=== PATIENT | female | born 1955 | race Caucasian/White ===

== ENCOUNTER 2024-01-08 15:00 | Outpatient (AMB) | payer MEDICARE, MEDICAID, SELFPAY ==
--- NOTE | 2024-01-08 15:04 | A.OFFVIS_ITS ---
Vital Signs 01/08/24 15:05 Height 5 ft 1 in Weight 224 lb 10.417 oz BMI 42.4 BP 138/80 Blood Pressure Location Lt brachial Position Sitting Pulse 84 Pulse Source Pulse Oximeter Pulse Oximetry (%) 98 Oxygen Delivery Method Room Air Intake Visit Reasons: +ANJALI Intake Note: New patient externally referral by PCP for +ANJALI 15-20 years She's tried different pain meds and ointments to try and help her. 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 Name: Camilla Bryant Accompanied by: Daughter Allergies No Known Allergies Allergy (Verified 01/08/24 15:13) Medication List - Last Reconciled 01/08/24 by Chey Shell MD acetaminophen (Tylenol Extra Strength) 500 mg PO Q6H PRN amlodipine 5 mg PO DAILY amoxicillin 500 mg PO QID aspirin (Adult Aspirin Regimen) 81 mg PO DAILY atorvastatin 40 mg PO DAILY cyclobenzaprine 5 mg PO BEDTIME diclofenac sodium 75 mg PO BID fluticasone propionate 50 mcg/actuation (Allergy Relief (fluticasone)) 1 spray intranasal DAILY vpzjoslh-hkncf-[id number]-C-jeremy-bor [id number] mg tabs PO lidocaine 4% (Salonpas (lidocaine)) 1 patch topical DAILY PRN lorazepam 1 mg PO BEDTIME PRN magnesium 500 mg PO DAILY metoprolol succinate ER 50 mg PO DAILY nortriptyline 25 mg PO BEDTIME omeprazole 20 mg PO DAILY sucralfate 1 g PO QIDACHS vitamin B complex 1 cap PO DAILY HPI Comments Details: This is a 68-year-old female who presents for evaluation of positive ANJALI. This was ordered in the context of polyarthritis and nail changes affecting her thumbs. Patient states that she has known osteoarthritis affecting multiple joints including both her knees, both her knees are replaced, she has pain hips anteriorly especially with activity. She takes Voltaren 75 mg about 3 times a week. She is unaware of any family history of an autoimmune rheumatic disease. She denies any swollen joints denies any skin rashes denies fevers or unexplained weight loss. No history of Raynaud's Denies any history of DVT/PE. PFSH Medical History Hernia FH: total knee replacement Hypertension Arthritis Surgical History History of surgery on lower extremity History of cholecystectomy Family History Mother Hypertension Son Heart failure Sister Breast CA Social History Alcohol intake: never Patient Tobacco Use Status: Never used Tobacco Female Reproductive History Menstrual Total pregnancies: 5 Ab induced: 0 Ab spontaneous: 0 Review of Systems Const Denies fever(s), Reports weakness and Denies weight loss Eyes Reports dry eyes Card Reports dyspnea on exertion Resp Reports dyspnea on exertion Musc Reports arthralgias, Denies joint swelling and Reports stiffness Skin/Breast Denies rash Neuro Reports weakness Physical Exam Vital Signs: Last Vital Signs Pulse 84 01/08/24 15:05 BP 138/80 01/08/24 15:05 Pulse Ox 98 01/08/24 15:05 Oxygen Delivery Method Room Air 01/08/24 15:05 BMI result Body Mass Index 42.4 Const General: cooperative, healthy appearing and comfortable Nutritional Appearance: obese morbidly obese Orientation/consciousness: patient oriented x3 Limitations: no limitations HEENT Head: Yes normocephalic and Yes atraumatic Mouth: moist mucous membranes Resp Effort & Inspection: normal respiratory effort and able to speak in complete sentences Auscultation: clear to auscultation bilaterally Cardio Rate: regular rate Rhythm: regular rhythm Skin General skin exam: no rashes or lesions noted Neuro General: patient oriented x3 Extrem Other: No active synovitis Osteoarthritic changes of both hands Normal nailfold capillaroscopy Bilateral anterior hip pain with foot inversion Negative straight leg raise test bilaterally Assessment & Plan Assessment & Plan (1) ANJALI positive: Code(s): R76.8 - Other specified abnormal immunological findings in serum Category: Medical Plan: This is a 68-year-old female presents for evaluation of positive ANJALI 1-640 homogeneous pattern in the setting of nail changes of her thumbs. Upon clinical evaluation I do not see any evidence of an autoimmune rheumatic disease. Mariam ent has normal CBC with normal ESR Discussed symptoms and signs that are suggestive of an autoimmune rheumatic disease. Patient can return as needed for re-evaluation Follow-up with marine habitat resource specialist (2) Bilateral primary osteoarthritis of hip: Code(s): M16.0 - Bilateral primary osteoarthritis of hip Category: Medical Plan: Mild symptoms, takes Voltaren 75 mg p.o. 3 times a week. Follow-up with PCP Plan I spent 30 minutes reviewing patient's chart, evaluating patient, counseling patient and documenting in the chart Coding Level of Care Code New Pt Level 3 (72837) Diagnoses ANJALI positive R76.8 Bilateral primary osteoarthritis of hip M16.0
[2024-01-08 15:05] VITALS: BP 138/80; PULSE 84; O2SAT 98; BMI 42.4
== END 2024-01-08 15:54 | disposition home or self-care (01) ==
PROVIDERS: PCP Registered Nurse; Visit Provider Student in an Organized Health Care Education/Training Program
DX: R76.8 Other specified abnormal immunological findings in serum (principal); M16.0 Bilateral primary osteoarthritis of hip
CPT/HCPCS: 99203

== ENCOUNTER → 2024-01-08 15:00 | Outpatient (BNVA) | payer MEDICARE, MEDICAID, SELFPAY | PROVIDERS: PCP Registered Nurse; Visit Provider Student in an Organized Health Care Education/Training Program | DX: M16.0 Bilateral primary osteoarthritis of hip (principal); R76.8 Other specified abnormal immunological findings in serum | CPT/HCPCS: 99202 ==

== ENCOUNTER 2025-03-02 11:15 | Outpatient (AMB) | payer MEDICARE, MEDICAID, SELFPAY ==
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
--- OUTSIDE RECORDS SUMMARY | 2025-03-02 12:41 | XMS_ITS ---
Author Name [facility] Organization Unknown Care Team Organization Name Specialty Phone Email Start Date End [facility] 01/20/2025
--- OUTSIDE RECORDS SUMMARY | 2025-03-02 12:41 | XMS_ITS | Encounter Summary ---
Author Organization [facility] Address [address] [place] [address] Care Team Providers Care Animal Trainer Supervisor Name Role Phone Nate Fulton MD Primary Care Provider [phone] Encounter Details Date Type Department Care Team (Late st Contact Info) Description 03/02/2025 Telephone Adult Medicine [facility] [address] [place] [address] Ashtyn Banuelos LPN Social History Tobacco Use Types Packs/Day Years Used Date Smoking Tobacco: Never Smokeless Tobacco: Never Alcohol Use Standard Drinks/Week Comments No 0 (1 standard drink = 0.6 oz pur e alcohol) Housing Instability Answer Date Recorde d Are you worried that in the next 2 months you may not have stable housing? No 01/04/2025 Food Access & Nutrition Answer Date Rec orded Do you have access to a vari ety of food including fruits and vegetables? Yes 01/04/2025 Access to Healthcare Answer Date Record ed Within the last 3 months, ho w many times did you visit the emergency department for your medical care? 0 01/04/2025 Health Literacy Answer Date Recorded How often do you need to hav e someone help you when you read instructions, pamphlets, or other written material from your doctor or pharmacy? Always 01/04/2025 Caregiver: How often do you need to have someone help you when you read instructions, pamphlets, or other written material from your doctor or pharmacy? Not on file 01/04/2025 Financial Risk Answer Date Recorded How hard is it for you to pa y for the very basics like food, housing, medical care, and air conditioning / heating? Not very hard 01/04/2025 Transportation Answer Date Recorded Has the lack of transportati on kept you from meetings, work, or from getting things needed for daily living? No Has the lack of transportati on kept you from medical appointments or from getting medications? No 01/04/2025 Social Isolation Answer Date Recorded How often do you feel lonely or isolated from th ose around you? Never 01/04/2025 Food Risk Answer Date Recorded Within the past 12 months we worried whether our food would run out before we got money to buy more. Never true 01/04/2025 Within the past 12 months th e food we bought just didn't last and we didn't have money to get more. Never true 01/04/2025 Dependent Care Answer Date Recorded Do you need help finding or paying for care for your loved ones. For example, child care assistant or elderly care for an older adult? No 01/04/2025 Education Answer Date Recorded Do you think completing more education or training, like finishing a GED, going to college, or learning a trade, would be helpful for you? N/A 01/04/2025 Employment and Income Answer Date Recor ded During the last four weeks, have you been actively looking for work? No 01/04/2025 Living Situation Answer Date Recorded What is your living situation? Unrecognized valu e 01/04/2025 Comments No Sex and Gender Information Value Date Recorded Sex Assigned at Not on file Legal Sex Female 12:52 PM EST Gender Identity Not on file Sexual Orientation Not on file documented as of this encounter Progress Notes * Ashtyn Banuelos LPN - 03/02/2025 12:15 PM EDT Pt was notified to complete a random urine drug screen in our [facility] by 03/03. The patient was also instructed that failure to complete this urine drug screen, as requested,would jeopardize their Controlled Substance Contract with [facility]. The patient expressed understanding of the instructions and confirmed that they will arrive by that date. documented in this encounter Plan of Treatment Upcoming Encounters Date Type Department Care Team (Late st Contact Info) Description 07/12/2025 10:30 AM EST Office Visit Adult Medicine - [place] [address] [place] [address] Peyton Gary NP [address] [place] [address] documented as of this encounter Visit Diagnoses Not on filedocumented in this encounter Additional Health Concerns Assessment Noted Time PHQ-9 Depression Total Score: 0 01/05/20 25 10:45 AM EDT documented as of this encounter Care Teams Animal Trainer Supervisor Relationship Specialty Start Date End Date Nate Fulton MD [address], [place] PCP - General Internal Medicine 09/28/20 documented as of this encounter
--- OUTSIDE RECORDS SUMMARY | 2025-03-02 12:41 | XMS_ITS | Encounter Summary ---
Author Organization [facility] Address [address] [place] [address] Care Team Providers Care News Reel Cameraman Name Role Phone Nate Fulton MD Primary Care Provider [phone] Reason for Visit * Reason Onset Date Comments Drug / Alcohol Assessment 03/01/2025 Encounter Details Date Type Department Care Team (Late st Contact Info) Description 03/01/2025 Telephone Adult Medicine [address] [address] Ashtyn Banuelos LPN Social History Tobacco [...] care for your loved ones. For example, childrens club attendant or elderly care for an older adult? [...] Progress Notes * Ashtyn Banuelos LPN - 03/01/2025 4:36 PM EDT UDS DUE AND PENDED Please sign and route back to me when signed documented in this encounter Plan of Treatment Upcoming Encounters Date Type Department Care Team (Late st Contact Info) Description 07/12/2025 10:30 AM EST Office Visit Adult Medicine [address] [address] Peyton Gary NP [address] [place] [address] Scheduled Orders Name Type Priority Associated Diagnoses Orde r Schedule Drug abuse screen expanded with reflex confirmation, urine Lab Routine Encounter for long-term (current) use of high-risk medication 1 Occurrences starting 03/02/2025 until 03/01/2026 documented as of this encounter Visit Diagnoses Diagnosis Encounter for long-term (current) use of high-risk medication- Primary Encounter for long-term (current) use of other medications documented in this encounter Additional Health Concerns Assessment Noted Time PHQ-9 Depression Total Score: 0 01/05/20 25 10:45 AM EDT documented as of this encounter Care Teams News Reel Cameraman Relationship Specialty Start Date End Date Nate Fulton MD [address] [place] [address] PCP - General Internal Medicine 09/28/20 documented as of this encounter
--- OUTSIDE RECORDS SUMMARY | 2025-03-02 12:41 | XMS_ITS | Clinical Summary ---
Author Organization [facility] [address] [facility] Address [address] [place] [address] Phone Care Team Providers Care Flight Readiness Technician Name Role Phone Nate Fulton MD Primary Care Provider [phone] Allergies No known active allergies Medications medical supply, miscellaneous (MISCELLANEOUS MEDICAL SUPPLY MISC) Inhale into the lungs at bedtime. BHIR-pressur e 6-16 Active camphor-methyl salicyl-menthoL adhesive patch,medicated Apply topically as needed. Active sucralfate (CARAFATE) 1 gram tablet TAKE 1 TABLET BY MOUTH TWICE A DAY 10/30/19 24 Active cholecalciferol (VITAMIN D-3) 25 mcg (1,000 unit) capsule Take 1,000 mg by mouth daily. Active gabapentin (NEURONTIN) 100 mg capsule Take 1 capsule (100 mg total) by mouth 3 (three) times a day. 270 each 1 11/18/19 25 Active omeprazole (PriLOSEC) [address] capsule Take 1 capsule (20 mg total) by mouth 1 (one) time each day. Do not crush or chew. 90 capsule 11/18/19 25 Active B complex tablet Take 1 tablet by mouth 1 (one) time each day. 90 tablet 1 11/18/19 25 Active amLODIPine (NORVASC) 5 mg tablet Take 1 tablet (5 mg total) by mouth 1 (one) time each day. 90 tablet 1 11/18/19 25 Active metoprolol succinate (TOPROL-XL) 50 mg 24 hr tablet Take 1 tablet (50 mg total) by mouth 1 (one) time each day. 90 tablet 1 11/18/19 25 Active nortriptyline (PAMELOR) 25 mg capsule Take 1 capsule (25 mg total) by mouth at bedtime. 90 capsule 1 11/18/19 25 Active aspirin 81 mg EC tablet Take 1 tablet (81 mg total) by mouth 1 (one) time each day. 90 tablet 1 11/18/19 25 Active tiZANidine (Zanaflex) 4 mg capsule Take 1 capsule (4 mg total) by mouth 3 (three) times a day if needed for muscle spasms. 30 capsule 12/02/19 25 Active fluticasone propionate (FLONASE) 50 mcg/actuation nasal spray SPRAY 2 SPRAYS INTO EACH NOSTRIL EVERY DAY 48 mL 1 12/12/19 25 Active diclofenac (VOLTAREN) 75 mg EC tablet TAKE 1 TABLET BY MOUTH TWICE A DAY 180 tablet 01/12/20 25 Active magnesium oxide 500 mg magnesium tabletIndication s:Dizziness,Paula ntractable episodic headache, unspecified headache type Take 1 tablet by mouth 1 (one) time each day. 90 tablet 1 01/12/20 25 Active lidocaine (LIDODERM) 5 % patch Apply 1 patch topically 1 (one) time each day. 90 each 01/12/20 25 025 Active lidocaine (LIDODERM) 5 % patchIndications :Chronic midline low back pain, unspecified whether sciatica present Apply 1 patch topically 1 (one) time each day. Remove & discard patch within 12 hours or as directed by MD. 10 patch 01/12/20 25 Active atorvastatin (LIPITOR) 40 mg tablet TAKE 1 TABLET BY MOUTH 1 TIME EACH DAY. 90 tablet 1 02/03/20 25 Active LORazepam (ATIVAN) 1 mg tablet Take 1 tablet (1 mg total) by mouth at bedtime as needed for sleep. for anxiety Max Daily Amount: 1 mg 28 tablet 2 02/11/20 25 Active meloxicam (MOBIC) 7.5 mg tabletIndication s:Dizziness,Paula ntractable episodic headache, unspecified headache type Take 1 tablet (7.5 mg total) by mouth 1 (one) time each day. 90 tablet 1 02/11/20 25 Active tiZANidine (ZANAFLEX) 4 mg tabletIndication s:Dizziness,Paula ntractable episodic headache, unspecified headache type Take 1 tablet (4 mg total) by mouth 3 (three) times a day if needed for muscle spasms. 30 tablet 02/11/20 25 025 Active atorvastatin (LIPITOR) 40 mg tablet Take 1 tablet (40 mg total) by mouth 1 (one) time each day. 90 each 1 05/12/20 24 025 Discontinued LORazepam (ATIVAN) 1 mg tablet Take 1 tablet (1 mg total) by mouth at bedtime as needed for sleep. for anxiety Max Daily Amount: 1 mg 28 tablet 2 11/18/19 25 025 Discontinued(R eorder) tiZANidine (ZANAFLEX) 4 mg tabletIndication s:Dizziness,Paula ntractable episodic headache, unspecified headache type Take 1 tablet (4 mg total) by mouth 3 (three) times a day if needed for muscle spasms. 30 tablet 01/12/20 25 025 Discontinued(R eorder) meloxicam (MOBIC) 7.5 mg tabletIndication s:Dizziness,Paula ntractable episodic headache, unspecified headache type Take 1 tablet (7.5 mg total) by mouth 1 (one) time each day. 30 tablet 01/12/20 25 025 Discontinued meloxicam (MOBIC) 7.5 mg tabletIndication s:Dizziness,Paula ntractable episodic headache, unspecified headache type TAKE 1 TABLET BY MOUTH 1 TIME EACH DAY. 90 tablet 1 02/10/20 25 025 Discontinued(R eorder) Active Problems Problem Noted Date Diagnosed Date Morbid obesity with BMI of 4 0.0-44.9, adult ([facility] V24, [facility] V28) 04/07/2024 Positive ANJALI (antinuclear antibody) 09/11/2023 Overview (04/07/2024): Mild 09/24. Normal ESR Anxiety 04/15/2022 Fatty liver 06/27/2017 Insomnia 01/01/2017 Palpitations 12/02/2014 Overview (04/07/2024): Holter Monitor in 06/17 showed frequent PVCs (0.6% of all beats) and two runs of atach up to 10 beats long. Improved on Toprol 50mg daily GERD (gastroesophageal reflux disease) 5 TIA (transient ischemic attack) 07/13/2014 Overview (04/07/2024): -per patient's daughter-[place] [facility] [place] 2 years ago but was ultimately cleared Hypercholesterolemia 05/06/2014 Hypertension 05/06/2014 Impaired glucose tolerance 05/06/2014 Encounters Date Type Department Care Team Description 03/02/2025 Telephone Adult Medicine [facility] [address] [place] [phone] Ashtyn Banuelos LPN 03/01/2025 Telephone Adult [facility] [address] [place] [address] Ashtyn Banuelos LPN 01/11/2025 10:00 AM EDT Office Visit Adult [facility] [address] [place] [address] Peyton Gary NP Dizziness (Primary Dx); Nonintractable episodic headache, unspecified headache type; Chronic midline low back pain, unspecified whether sciatica present; Impaired glucose tolerance; Hypercholesterolemia from Last 3 Months Immunizations Immunization Administration Dates Next Due Pneumococcal conjugate 20 va lent (Prevnar 20, PCV 20) 2mo and older 05/07/2023 Td Tetanus diptheria (Tdvax) 7yo and older 05/07 Tdap Tetanus diptheria acell ular pertussis (Boostrix; Adacel) 7yo and older 12/20/2010 Zoster Live 03/03/2024 Surgical History Surgery Date Site/Laterality Comments CHOLECYSTECTOMY PROCEDURE: HISTORICAL CHOLECYSTECTOMY COLONOSCOPY 08/14/2010 PROCEDURE: HISTORICAL COLONOSCOPY; COMMENT: [place] [facility]. UPPER GASTROINTESTINAL ENDOSCOPY 08/14/2010 PROCEDURE: MS UPPER GI ENDOSCOPY PERFORMED; COMMENT: Dr. Cody; [facility]; indication nausea and dyspepsia; erythema noted and biopsied in the antrum, rapid tissue urease testing was positive. Treatment subsequently given. OTHER SURGICAL HISTORY 09/27/2020 N/A PROCEDURE: MS RPR UMBILICAL HRNA 5 YRS/> REDUCIBLE; COMMENT: open umbilical hernia repair with mesh - by Dr. González [facility] Medical History Medical History Date Comments Sleep apnea 05/06/2014 DX:Sleep apnea Impaired fasting glucose 05/06/2014 DX:Impa ired fasting glucose Hypertension 05/06/2014 DX:Hypertension Hypercholesterolemia 05/06/2014 DX:Hypercho lesterolemia Morbid obesity (CMS/HCC V24, CMS/HCC V28) 05/06/2014 DX:Morbid obesity (HCC) Headache 05/06/2014 DX:Headache Sensory peripheral neuropathy 05/06/2014 DX :Sensory peripheral neuropathy Varicose vein 05/06/2014 DX:Varicose vein Hiatal hernia 05/20/2014 DX:Hiatal hernia Nonulcer dyspepsia 05/25/2016 DX:Nonulcer d yspepsia Helicobacter pylori infection 05/25/2016 DX :Helicobacter pylori infection; COMMENT: Endoscopy and treatment 2010. Atypical chest pain 05/25/2016 DX:Atypical chest pain Sprain and strain of unspeci fied site of hip and thigh 12/27/2014 DX:Sprain and strain of unspecified site of hip and thigh Sprain of sacroiliac ligament 12/27/2014 DX :Sprain of sacroiliac ligament Lateral epicondylitis 06/05/2011 DX:Lateral epicondylitis Knee pain 02/14/2012 DX:Knee pain Displacement of lumbar inter vertebral disc without myelopathy 06/05/2011 DX:Displacement of lumbar intervertebral disc without myelopathy Family History Medical History Relation Name Comments Hypertension Mother Breast cancer Sister Other: age 5 mo of heart condition Son 1 Relation Name Status Comments Daughter 1 Alive Daughter 2 Alive Mother Sister Son 1 Son 2 Alive Son 3 Alive Social History Tobacco Use Types Packs/Day Years Used Date Smoking Tobacco: Never Smokeless Tobacco: Never Tobacco Cessation:Counseling Given: Not Answered Alcohol Use Standard Drinks/Week Comments No 0 [...] for your loved ones. For example, child life therapist or elderly care for an older adult? [...] on file Sexual Orientation Not on file Obstetrics History Last Filed Vital Signs Vital Sign Reading Time Taken Comments Blood Pressure 115/68 01/11/2025 10:03 AM EDT Pulse 66 01/11/2025 10:03 AM EDT Temperature 36.3 C (97.3 F) 11/17/2024 10:26 AM EDT Respiratory Rate 18 01/11/2025 10:03 AM EDT Oxygen Saturation 96% 09/17/2024 1:37 PM EDT Inhaled Oxygen Concentration - - Weight 99.8 kg (220 lb) 01/11/2025 10:03 AM EDT Height 154.9 cm (5' 1 ) 01/11/2025 10:03 AM EDT Body Mass Index 41.57 01/11/2025 10:03 AM EDT Plan of Treatment Upcoming Encounters Date Type Department Care Team (Late st Contact Info) Description 07/12/2025 10:30 AM EST Office Visit Adult Medicine - [place] [address] [place] [phone] Peyton Gary NP [address] [place] [address] Health Maintenance Due Date Last Done Comments RSV Immunization Adult Patients (1 - Risk 60-74 years 1-dose series) 2015 Breast Cancer Screening 09/03/2023 09/02/2021, 06/28 Medicare Annual Wellness Visit 02/27/2024 02/26/2023 Zoster Vaccines (3 of 3) 09/07/2024 07/13/2024, 06/2023 COVID-19 Vaccine ( - season) 2025 Influenza Vaccine (#1) 2025 Colorectal Cancer Screening: Colonoscopy 05/13/2025 05/13/2020 Hypertension/CHF/CAD Annual BMP Blood Test 09/17/2025 09/17/2024, 02/05/2024, 02/05/2024, Additional history exists Social Influencers of Health Screening 01/04/2026 01/04/2025 Falls Risk Assessment 01/11/2026 01/11/2025 Cholesterol Screening (Lipid Panel) 11/17/2029 11/17/2024, 02/05/2024, 02/05/2024 Osteoporosis Screening (Bone Density Screening) 06/13/2031 06/13/2021 DTaP,Tdap,and Td Vaccines (3 - Td or Tdap) 05/07/2033 05/07/2023, 12/20/2010 Hepatitis C Screening Completed 08/24/2016 Pneumococcal Vaccine: 50+ Years Completed 05/07/2023 Depression Screening Completed 01/04/2025 HIB Vaccines Aged Out No longer eligi ble based on patient's age to complete this topic HPV Vaccines Aged Out No longer eligi ble based on patient's age to complete this topic Hepatitis A Vaccines Aged Out No long er eligible based on patient's age to complete this topic Hepatitis B Vaccines Aged Out No long er eligible based on patient's age to complete this topic IPV Vaccines Aged Out No longer eligi ble based on patient's age to complete this topic MMR Vaccines Aged Out No longer eligi ble based on patient's age to complete this topic Meningococcal ACWY Vaccine Aged Out N o longer eligible based on patient's age to complete this topic Meningococcal B Vaccine Aged Out No l onger eligible based on patient's age to complete this topic RSV Immunization Patients Under 20 months Aged Out No longer eligible based on patient's age to complete this topic Varicella Vaccines Aged Out No longer eligible based on patient's age to complete this topic Procedures Procedure Name Priority Date/Time Associated Diagnosis Comments LIPID PANEL WITH REFLEX TO DIRECT LDL Routine 11/17/2024 10:54 AM EDT Hypercholesterolemia COMPREHENSIVE METABOLIC PANEL Routine 09/17/2024 2:36 PM EDT Pre-op exam Primary hypertension Hypercholesterolemia Anxiety Ear lesion SCREENING MAMMOGRAPHY BI 2-VIEW BREAST INC CAD Routine 09/02/2021 10:34 AM EDT Encounter for screening mammogram for malignant neoplasm of breast DXA BONE DENSITY STUDY 1+ SITS AXIAL SKEL Routine 06/13/2021 11:05 AM EST Encounter for screening for osteoporosis COLONOSCOPY Routine 05/13/2020 HEPATITIS C SCREENING Routine 08/24/2016 from Last 3 Months or Most Recently Relevant to Health Maintenance Results * (ABNORMAL) Lipid panel with reflex to direct LDL (11/17/2024 10:54 AM EDT) Cholesterol 198 0 - 200 mg/dL LAB CHEMISTRY METHOD 11/17/2024 12:44 PM EDT [facility] Triglycerides 120 0 - 150 mg/dL LAB CHEMISTRY METHOD 11/17/2024 12:44 PM EDT [facility] HDL 48 >=40 mg/dL LAB CHEMISTRY METHOD 11/17/2024 12:44 PM EDT [facility] LDL Calculated 126(H) 0 - 100 mg/dL LAB CHEMISTRY METHOD 11/17/2024 12:44 PM EDT [facility] VLDL Cholesterol Karel 24 mg/dL LAB CHEMISTRY METHOD 11/17/2024 12:44 PM EDT [facility] Non HDL Chol. (LDL+VLDL) 150(H) <145 mg/dL LAB CHEMISTRY METHOD 11/17/2024 12:44 PM EDT [facility] Chol/HDL Ratio 4.1 0.0 - 4.4 LAB CHEMISTRY METHOD 11/17/2024 12:44 PM EDT [facility] Blood Venous blood specimen / Unknown Venipuncture / Unknown 11/17/2024 10:54 AM EDT 11/17/2024 10:54 AM EDT [facility] [place] Fulton MD LAB BLOOD ORDERABLES Final Res ult [facility] [address] [place] [address], * Comprehensive metabolic panel (09/17/2024 2:36 PM EDT) Sodium 139 133 - 145 mmol/L LAB CHEMISTRY METHOD 09/17/2024 4:33 PM EDT [facility] Potassium 4.9 3.5 - 5.5 mmol/L LAB CHEMISTRY METHOD 09/17/2024 4:33 PM EDT [facility] Chloride 108 96 - 110 mmol/L LAB CHEMISTRY METHOD 09/17/2024 4:33 PM EDT [facility] CO2 27 21 - 32 mmol/L LAB CHEMISTRY METHOD 09/17/2024 4:33 PM [facility] Anion Gap 4 3 - 11 LAB CHEMISTRY METHOD 09/17/2024 4:33 PM [facility] Glucose 91 70 - 100 mg/dL LAB CHEMISTRY METHOD 09/17/2024 4:33 PM [facility] BUN 19 5 - 25 mg/dL LAB CHEMISTRY METHOD 09/17/2024 4:33 PM [facility] Creatinine 0.95 0.50 - 1.10 mg/dL LAB CHEMISTRY METHOD 09/17/2024 4:33 PM [facility] eGFR 65 >=60 mL/min/1. 73m2 LAB CHEMISTRY METHOD 09/17/2024 4:33 PM [facility] Comment:Calculation based on the Chronic Kidney Disease Epidemiology Collaboration (CKD-EPI) equation refit without adjustment for race. BUN/Creatinine Ratio 20.0 LAB CHEMISTRY METHOD 09/17/2024 4:33 PM [facility] Calcium 9.3 8.5 - 10.5 mg/dL LAB CHEMISTRY METHOD 09/17/2024 4:33 PM [facility] AST (SGOT) 25 10 - 42 unit/L LAB CHEMISTRY METHOD 09/17/2024 4:33 PM [facility] ALT (SGPT) 45 10 - 60 unit/L LAB CHEMISTRY METHOD 09/17/2024 4:33 PM [facility] Alkaline Phosphatase 76 42 - 121 unit/L LAB CHEMISTRY METHOD 09/17/2024 4:33 PM [facility] Total Protein 8.0 6.0 - 8.0 g/dL LAB CHEMISTRY METHOD 09/17/2024 4:33 PM [facility] Albumin 3.9 3.2 - 5.0 g/dL LAB CHEMISTRY METHOD 09/17/2024 4:33 PM [facility] Total Bilirubin 0.3 0.0 - 1.4 mg/dL LAB CHEMISTRY METHOD 09/17/2024 4:33 PM EDT [facility] Blood Venous blood specimen / Unknown Venipuncture / Unknown 09/17/2024 2:36 PM EDT 09/17/2024 2:36 PM EDT us Erlinda Gonzalez MD LAB BLOOD ORDERABLES F inal Result [facility] [address] [place] [address], [place] [phone] * SCREENING MAMMOGRAPHY BI 2-VIEW BREAST INC CAD (09/02/2021 10:34 AM EDT) Anatomical Region Laterality Modality Radiographic Rosemarie ging 06/28/2020 4:48 PM EST Narrative 09/05/2021 8:10 AM EDT This is a summary report. The complete report is available in the patient's medical record. If you cannot access the medical record, please contact the sending organization for a detailed fax or copy. Exam: Screening mammogram Findings: Digital bilateral full-field screening mammography is performed with tomosynthesis and interpreted with the aid of computer-aided detection. Comparison is made with 06/28/2020 and as far back as 12/26/2016. Breast parenchyma is composed of scattered fibroglandular densities. No new suspicious mass, architectural distortion, or suspicious calcifications. Impression: No mammographic evidence of malignancy. BI-RADS 1 - negative Procedure Note Anny Guerra MD - 05/22/2022 This is a summary report. The complete report is available in thepatient's medical record. If you cannot access the medical record, pleasecontact the sending organization for a detailed fax or copy. Exam: Screening mammogram Findings: Digital bilateral full-field screening mammography is performedwith tomosynthesis and interpreted with the aid of computer-aideddetection. Comparison is made with 06/28/2020 and as far back as12/26/2016. Breast parenchyma is composed of scattered fibroglandular densities. Nonew suspicious mass, architectural distortion, or suspiciouscalcifications. Impression: No mammographic evidence of malignancy. BI-RADS 1 - negative [facility] Keith Fulton MD IMG XR PROCEDURES Final Result * DXA BONE DENSITY STUDY 1+ SITS AXIAL SKEL (06/13/2021 11:05 AM EST) Anatomical Region Laterality Modality Bone Densitometr y 03/16/2021 3:24 PM EDT Narrative 06/13/2021 4:10 PM EST BONE DENSITY SCAN (DEXA): FINDINGS: Lumbar Spine T-score is -0.8. (SD relative to 20-29 y/o adult) Z-score is 1.1. (SD relative to age matched peers) This is considered normal by WHO criteria. Left Hip T-score is -1.9. Z-score is -0.4. This is considered osteopenia by WHO criteria. Comparison exam(s): None. IMPRESSION: IMPRESSION: Osteopenia by WHO criteria. This patient has a 15% risk of major osteoporotic fracture and a 2.0% risk of hip fracture over the next 10 years. (World Health Organization Fracture Risk Assessment) [facility] Department of Internal Medicine recommends using National Osteoporosis Foundation (NOF) guidelines in treatment decisions related to osteoporosis. NOF guidelines suggest considering treatment for postmenopausal women and men aged 50 or older presenting with the following: History of hip or vertebral fracture. T-score = -2.5 (DXA) at the femoral neck, total hip, or spine, after appropriate evaluation to exclude secondary causes. Low bone mass (T-score between -1.0 and -2.5 at the femoral neck or spine) AND a 10-year probability of a hip fracture = 3% OR a 10-year probability of a major osteoporosis-related fracture = 20% based on the [place]-adapted WHO algorithm Please note that all treatment decisions require clinical judgment and consideration of individual patient factors, including patient preferences, co-morbidities, previous drug use, risk factors not captured in the FRAX model (e.g., frailty, falls, vitamin D deficiency, increased bone turnover, interval significant decline in bone density) and possible under- or over-estimation of fracture risk by FRAX. Optional alternative screening schedule based on karma Baxter., [facility] June 21, 2011 for patients with osteopenia (based on hip BMD T-score) is as follows: * advanced osteopenia (T scores -2.00 to -2.49), BMD testing every year * moderate osteopenia (T scores -1.50 to -1.99), BMD testing every 5 years mild osteopenia or normal BMD (T scores -1.50 and higher), BMD testing every 15 years Procedure Note Anny Guerra MD - 05/22/2022 BONE DENSITY SCAN (DEXA): FINDINGS: Lumbar Spine T-score is -0.8. (SD relative to 20-29 y/o adult) Z-score is 1.1. (SD relative to age matched peers) This is considered normal by WHO criteria. Left Hip T-score is -1.9. Z-score is -0.4. This is considered osteopenia by WHO criteria. Comparison exam(s): None. IMPRESSION: IMPRESSION: Osteopenia by WHO criteria. This patient has a 15% risk of majorosteoporotic fracture and a 2.0% risk of hip fracture over the next 10 years. (World HealthOrganization Fracture Risk Assessment) [facility] Department of Internal Medicine recommendsusing National Osteoporosis Foundation (NOF) guidelines in treatment decisions related toosteoporosis. NOF guidelines suggest considering treatment for postmenopausal women and menaged 50 or older presenting with the following: History of hip or vertebral fracture. T-score = -2.5 (DXA) at the femoral neck, total hip, or spine, afterappropriate evaluation to exclude secondary causes. Low bone mass (T-score between -1.0 and -2.5 at the femoral neck or spine)AND a 10-year probability of a hip fracture = 3% OR a 10-year probability of a majorosteoporosis-related fracture = 20% based on the [place]-adapted WHO algorithm Please note that all treatment decisions require clinical judgment andconsideration of individual patient factors, including patient preferences, co- morbidities,previous drug use, risk factors not captured in the FRAX model (e.g., frailty, falls, vitaminD deficiency, increased bone turnover, interval significant decline in bone density) andpossible under- or over-estimation of fracture risk by FRAX. Optional alternative screening schedule based on karma Baxter., NEJMJanuary 2011 for patients with osteopenia (based on hip BMD T-score) is as follows: * advanced osteopenia (T scores -2.00 to -2.49), BMD testing every year * moderate osteopenia (T scores -1.50 to -1.99), BMD testing every 5years mild osteopenia or normal BMD (T scores -1.50 and higher), BMD testingevery 15 years C Keith Fulton MD IMG DXA PROCEDURES Final Resul t * Colonoscopy (05/13/2020) [facility] Colonoscopy No interpretation , Abstracted Anatomical Region Laterality Modality Other Historical Provider HEALTH MAINTENANCE Final Result * Hepatitis C Screening (08/24/2016) [facility] Hepatitis C Screening Abstracted Historical Provider HEALTH MAINTENANCE Final Result from Last 3 Months or Most Recently Relevant to Health Maintenance Insurance MEDICARE MEDICAID - [place] Care Teams Flight Readiness Technician Relationship Specialty Start Date End Date Nate Fulton MD [address] [place] [id number] PCP - General Internal Medicine 09/28/20
== END 2025-03-02 12:10 | disposition home or self-care (01) ==
LOC: HO.HSM 11:15
PROVIDERS: PCP Registered Nurse; Visit Provider Psychiatry & Neurology Neurology
DX: G44.229 Chronic tension-type headache, not intractable (principal); G44.40 Drug-induced headache, not elsewhere classified, not intractable; S06.0XAA Concussion with loss of consciousness status unknown, initial encounter; B02.29 Other postherpetic nervous system involvement
CPT/HCPCS: 99204

== ENCOUNTER → 2025-03-02 11:15 | Outpatient (BNVA) | payer MEDICARE, MEDICAID, SELFPAY | PROVIDERS: PCP Registered Nurse; Visit Provider Psychiatry & Neurology Neurology | DX: G44.40 Drug-induced headache, not elsewhere classified, not intractable (principal); G44.229 Chronic tension-type headache, not intractable; S06.0XAA Concussion with loss of consciousness status unknown, initial encounter; B02.29 Other postherpetic nervous system involvement | CPT/HCPCS: 99202 ==